=== PATIENT | male | born 1960 | race Caucasian/White ===

== ENCOUNTER 2021-05-06 11:15 | Inpatient (IN) | payer OTHER, MEDICAID ==
[~2021-05-06] VITALS: Ht 180.3 cm; Wt 81.6 kg
[2021-05-06] VITALS (13 sets, daily range): BP systolic 149–203; BP diastolic 60–94
[2021-05-06] MEDS ORDERED: ATROPINE SULF 0.5 MG/5ML SYR ONE (11:33)
[2021-05-06] MEDS ORDERED: ATROPINE SULF 1 MG/10ml SYR IV ONE ×2 (11:45→13:15)
[2021-05-06] MEDS ORDERED: GLUCAGON HYDROCHLORIDE (RDNA) 1 MG VIAL IV ONE ×3 (11:45→18:15)
[2021-05-06 12:04] LABS: Albumin 4.2 g/dL (3.4-5.0); Amylase 80 U/L (25-115); Anion Gap 9 (5-15); Blood Urea Nitrogen 10 mg/dL (7-18); Calcium 9.3 mg/dL (8.5-10.1); Carbon Dioxide 22 mmol/L (21-32); Chloride 110 mmol/L (98-107); Glucose 178 mg/dL (74-106); Lipase 166 U/L (73-393); Potassium 3.6 mmol/L (3.5-5.1); Sodium 141 mmol/L (136-145)
[2021-05-06 12:11] LABS: Alanine Aminotransferase 74 U/L (16-61); Alkaline Phosphatase 112 U/L (45-117); Aspartate Aminotransferase 56 U/L (15-37); Bilirubin, Total 0.8 mg/dL (0.2-1.0); GFR African American 133 mL/min; GFR Non-African American 110 mL/min; Total Protein 8.4 g/dL (6.4-8.2)
[2021-05-06] MEDS ORDERED: hydrALAZINE HCL 20 MG/ML VL IV ONE ×2 (12:15→15:30)
[2021-05-06] MEDS ORDERED: METOCLOPRAMIDE HCL 5MG/ml INJ 2ml VIAL IV ONE ×2 (12:15→14:15)
[2021-05-06 12:27] LABS: Hematocrit 46.5 % (41.0-53.0); Hemoglobin 16.8 g/dL (13.5-17.5); Mean Corpuscular Hemoglobin 31.6 pg (28.0-32.0); Mean Corpuscular Hgb Conc. 36.1 g/dL (32.0-36.0); Mean Corpuscular Volume 87.6 fL (80.0-100.0); Red Blood Cells 5.32 10^6/uL (4.5-5.90); Red Cell Distribution Width 14.8 % (11.8-14.3); White Blood Cell 5.7 10^3/uL (4.4-10.8)
[2021-05-06 12:32] LABS: Band Neutrophils % (manual) 0; Basophils % (manual) 0 (0.0-2.0); Blast Cells 0; Eosinophils % (manual) 0 (0-7); Metamyelocytes % 0; Myelocytes % 0; Promyelocytes % 0; Reactive Lymphocytes 0
[2021-05-06 12:43] LABS: Lymphocytes % (manual) 61 (10.0-50.0); Monocytes % (manual) 3 (0-12)
[2021-05-06 13:57] LABS: Urine Bacteria NONE SEEN /hpf (None Seen); Urine Blood Negative /uL (Negative); Urine Hyaline Cast FEW /lpf (0 - 2); Urine Specific Gravity 1.012 (1.001-1.035); Urine WBC 1 /hpf (0 - 3)
[2021-05-06] MEDS ORDERED: MORPHINE SULF INJ 2 MG/ML SYRINGE 1ML IV PRN (15:30)
[2021-05-06] MEDS ORDERED: NITROGLYCERIN 0.4 MG SL TAB SL PRN (15:30)
[2021-05-06] MEDS ORDERED: ATOR-47 PO (20:07)
[2021-05-06] MEDS ORDERED: METF-929 PO (20:07)
[2021-05-06] MEDS ORDERED: BICT1TAB PO (20:07)
[2021-05-06] MEDS ORDERED: LISI40TA11 PO (20:07)
[2021-05-06] MEDS ORDERED: GLIP-110 PO (20:07)
[2021-05-06] MEDS ORDERED: ATEN100T PO (20:07)
[2021-05-06] MEDS ORDERED: ASPI-231 PO (20:07)
[2021-05-06] MEDS ORDERED: ATROPINE SULF 1 MG/10ml SYR IV PRN (20:45)
[2021-05-06] MEDS ORDERED: DEXTROSE (50%) 50ML SYRG IV PRN (21:00)
[2021-05-06] MEDS ORDERED: SODIUM CHLORIDE 0.9% 1,000 ML IV ONE ×2 (21:00)
[2021-05-06] MEDS ORDERED: ATROPINE SULFATE 1 MG/1 ML VIAL ONE (21:05)
[2021-05-06] MEDS: ACCU-CHEK COMFORT CURVE STRIP VI SCH (22:00)
[2021-05-06] MEDS ORDERED: ISOPROTERENOL HCL INJECTION 1 MG in D5W 5% 250 ML IV SCH (22:30)
[2021-05-06] MEDS: hydrALAZINE HCL 20 MG/ML VL IV PRN (22:59)
[2021-05-06] MEDS: ATORVASTATIN 20 MG TAB PO SCH (23:00)
[2021-05-06] MEDS: InsuLIN REG 1unit/0.01ml Soln (100units/ml) SC SCH (23:23)
[2021-05-07] VITALS (59 sets, daily range): BP systolic 121–210; BP diastolic 59–97
[2021-05-07] MEDS ORDERED: ALPRAZolam 0.5 MG TAB ONE (00:30)
[2021-05-07] MEDS ORDERED: NITROGLYCERIN 0.4 MG SL TAB SL PRN (00:45)
[2021-05-07] MEDS ORDERED: hydrALAZINE HCL 20 MG/ML VL IV PRN (00:45)
[2021-05-07] MEDS: ALPRAZolam 0.5 MG TAB PO PRN ×2 (00:54→21:30)
[2021-05-07] MEDS: ACCU-CHEK COMFORT CURVE STRIP VI SCH ×4 (05:00→21:59)
[2021-05-07] MEDS: InsuLIN REG 1unit/0.01ml Soln (100units/ml) SC SCH ×4 (05:00→22:00)
[2021-05-07] MEDS ORDERED: [UNRECOGNIZED DRUG - OTHER] IV SCH (10:00)
[2021-05-07] MEDS: ASPirin 81 mg TAB PO SCH (10:09)
[2021-05-07] MEDS: amLODIPine BESYLATE 5 MG TAB PO SCH (12:34)
[2021-05-07] MEDS: LISINOPRIL 20 MG TAB PO SCH ×2 (12:35→21:58)
[2021-05-07] MEDS: hydrALAZINE HCL 20 MG/ML VL IV PRN (17:37)
[2021-05-07] MEDS: ATORVASTATIN 20 MG TAB PO SCH (21:57)
[2021-05-08] VITALS (19 sets, daily range): BP systolic 136–186; BP diastolic 69–107
[2021-05-08] MEDS: ACCU-CHEK COMFORT CURVE STRIP VI SCH ×2 (06:22→12:44)
[2021-05-08] MEDS: InsuLIN REG 1unit/0.01ml Soln (100units/ml) SC SCH ×2 (06:22→14:38)
[2021-05-08] MEDS: ASPirin 81 mg TAB PO SCH (09:35)
[2021-05-08] MEDS: ALPRAZolam 0.5 MG TAB PO PRN (09:35)
[2021-05-08] MEDS: amLODIPine BESYLATE 5 MG TAB PO SCH (09:35)
[2021-05-08] MEDS: LISINOPRIL 20 MG TAB PO SCH (09:36)
[2021-05-08] MEDS: hydrALAZINE HCL 25 MG TAB PO SCH ×2 (10:29→14:39)
[2021-05-08] MEDS ORDERED: HYDR25TA87 PO (11:53)
[2021-05-08] MEDS ORDERED: AML5T PO (11:53)
== END 2021-05-08 16:00 | disposition home health service (06) | DRG 310 ==
LOC: ER 11:15 → EDBD 11:15 → TELE 15:20 → ICU WEST 20:11
PROVIDERS: ADMIT Internal Medicine; ATTEND Internal Medicine
DX: R00.1 Bradycardia, unspecified (principal); E11.9 Type 2 diabetes mellitus without complications; E27.8 Other specified disorders of adrenal gland; E78.5 Hyperlipidemia, unspecified; I10 Essential (primary) hypertension; K40.90 Unilateral inguinal hernia, without obstruction or gangrene, not specified as recurrent; K44.9 Diaphragmatic hernia without obstruction or gangrene; T44.7X5A Adverse effect of beta-adrenoreceptor antagonists, initial encounter; Z20.822 Contact with and (suspected) exposure to COVID-19; R55 Syncope and collapse; Z80.9 Family history of malignant neoplasm, unspecified
CPT/HCPCS: 36415; 70450; 71045; 74176; 80053; 81001; 82150; 82962; 83690; 84484; 85007; 85027; 85049; 87081; 87426; 93005; 93306; 96374; 96375; 96376; 99291; G0378; J0461; J7060

== ENCOUNTER 2021-05-23 08:31 | Inpatient (IN) | payer OTHER, MEDICAID ==
[~2021-05-23] VITALS: Ht 210.8 cm; Wt 82.5 kg
[~2021-05-23 08:31] MED LIST: AML5T PO; ASPI-231 PO; ATOR-47 PO; BICT1TAB PO; GLIP-110 PO; HYDR25TA87 PO; LISI40TA11 PO; METF-929 PO
[2021-05-23 09:23] LABS: Basophils # (auto) 0 10 ^3/uL (0-0.2); Basophils % (auto) 0.6 % (0.0-2.0); Eosinophils # (auto) 0.1 10 ^3/uL (0-0.8); Eosinophils % (auto) 1.2 % (0.0-7.0); Hematocrit 45.3 % (41.0-53.0); Hemoglobin 15.9 g/dL (13.5-17.5); Lymphocytes % (auto) 26.1 % (10.0-50.0); Mean Corpuscular Hemoglobin 30.9 pg (28.0-32.0); Mean Corpuscular Volume 88.3 fL (80.0-100.0); Monocytes # (auto) 0.3 10 ^3/uL (0-1.3); Neutrophils # (auto) 5.1 10 ^3/uL (1.6-8.6); Neutrophils % (auto) 68.1 % (37.0-80.0); Nucleated Red Blood Cells % 0.1 %; Red Blood Cells 5.13 10^6/uL (4.5-5.90); Red Cell Distribution Width 14.2 % (11.8-14.3); White Blood Cell 7.5 10^3/uL (4.4-10.8)
[2021-05-23 09:43] LABS: Albumin 3.8 g/dL (3.4-5.0); Blood Urea Nitrogen 10 mg/dL (7-18); Carbon Dioxide 24 mmol/L (21-32); INR 1.05 (0.9-1.15); Partial Thromboplastin Time 25.6 sec (23.0-31.2)
[2021-05-23 10:08] LABS: Potassium 3.8 mmol/L (3.5-5.1); Sodium 140 mmol/L (136-145)
[2021-05-23 10:09] LABS: Alanine Aminotransferase 96 U/L (16-61); Alkaline Phosphatase 96 U/L (45-117); Anion Gap 6 (5-15); Aspartate Aminotransferase 39 U/L (15-37); BUN/Creatinine Ratio 17.5; Bilirubin, Total 0.8 mg/dL (0.2-1.0); Chloride 110 mmol/L (98-107); GFR African American 188 mL/min; GFR Non-African American 155 mL/min; Glucose 209 mg/dL (74-106); Total Protein 8.2 g/dL (6.4-8.2)
[2021-05-23] MEDS ORDERED: ONDANSETRON HCL 4 MG/2 ML VIAL ONE (11:42)
[2021-05-23 14:20] LABS: Salicylate 2.2 mg/dL (2.8-20.0)
[2021-05-23 14:22] LABS: Acetaminophen < 2.0 ug/mL (10-30)
[2021-05-23] MEDS ORDERED: DEXTROSE (50%) 50ML SYRG IV PRN (15:30)
[2021-05-23] MEDS ORDERED: ONDANSETRON HCL 4 MG/2 ML VIAL IV PRN (15:30)
[2021-05-23] MEDS ORDERED: hydrALAZINE HCL 20 MG/ML VL IV PRN (15:30)
[2021-05-23] MEDS ORDERED: MORPHINE SULF INJ 2 MG/ML SYRINGE 1ML IV PRN (15:30)
[2021-05-23] MEDS ORDERED: NITROGLYCERIN 0.4 MG SL TAB SL PRN (15:30)
[2021-05-23] MEDS ORDERED: HYDROcodone-ACET 5/325MG TAB PO PRN (15:30)
[2021-05-23] MEDS ORDERED: ACETAMINOPHEN 325 MG TAB PO PRN (15:30)
[2021-05-23] MEDS: ACCU-CHEK COMFORT CURVE STRIP VI SCH ×2 (16:00→20:05)
[2021-05-23 16:38] LABS: Urine Bacteria NONE SEEN /hpf (None Seen); Urine Blood Negative /uL (Negative); Urine Mucus FEW (None Seen); Urine Specific Gravity 1.016 (1.001-1.035); Urine WBC 2 /hpf (0 - 3)
[2021-05-23] MEDS: InsuLIN REG 1unit/0.01ml Soln (100units/ml) SC SCH ×2 (16:45→20:00)
[2021-05-23 16:57] LABS: Alcohol, Urine < 3.0 mg/dL (0-10); Amphetamine Screen, Urine NEGATIVE (NEGATIVE); Barbiturate Scree,Urine NEGATIVE (NEGATIVE); Benzodiazephine Screen, Urine NEGATIVE (NEGATIVE); Cannabinoid Screen, Urine POSITIVE (NEGATIVE); Cocaine Screen, Urine NEGATIVE (NEGATIVE); Opiate Scree,Urine NEGATIVE (NEGATIVE); Phencyclidine Screen, Urine NEGATIVE (NEGATIVE)
[2021-05-23 17:11] LABS: Hepatitis B Surface Antigen Negative (Negative)
[2021-05-23 17:12] LABS: Hepatitis A Ab IgM Negative; Hepatitis B Core IgM Negative; Hepatitis C Antibody Negative (Negative)
[2021-05-23] MEDS: metFORMIN HYDROCHLORIDE 500 MG TAB PO SCH (18:10)
[2021-05-23] MEDS ORDERED: LORazepam 2MG/ML-1ML VIAL IV PRN (21:00)
[2021-05-24] MEDS: ACCU-CHEK COMFORT CURVE STRIP VI SCH ×6 (00:08→21:56)
[2021-05-24] MEDS: InsuLIN REG 1unit/0.01ml Soln (100units/ml) SC SCH ×6 (04:00→21:26)
[2021-05-24 06:47] LABS: Basophils # (auto) 0 10 ^3/uL (0-0.2); Basophils % (auto) 0.7 % (0.0-2.0); Eosinophils # (auto) 0.1 10 ^3/uL (0-0.8); Eosinophils % (auto) 1.2 % (0.0-7.0); Hematocrit 41.9 % (41.0-53.0); Lymphocytes # (auto) 2.7 10 ^3/uL (0.4-5.4); Lymphocytes % (auto) 42.7 % (10.0-50.0); Mean Corpuscular Hemoglobin 31.8 pg (28.0-32.0); Mean Corpuscular Hgb Conc. 35.8 g/dL (32.0-36.0); Mean Corpuscular Volume 88.7 fL (80.0-100.0); Monocytes # (auto) 0.4 10 ^3/uL (0-1.3); Monocytes % (auto) 5.8 % (0.0-12.0); Neutrophils # (auto) 3.2 10 ^3/uL (1.6-8.6); Neutrophils % (auto) 49.6 % (37.0-80.0); Nucleated Red Blood Cells % 0.1 %; Red Blood Cells 4.72 10^6/uL (4.5-5.90); White Blood Cell 6.4 10^3/uL (4.4-10.8)
[2021-05-24 07:10] LABS: Albumin 3.6 g/dL (3.4-5.0); Calcium 8.7 mg/dL (8.5-10.1); Potassium 4.8 mmol/L (3.5-5.1)
[2021-05-24 07:15] LABS: BUN/Creatinine Ratio 23.3; Bilirubin, Total 0.7 mg/dL (0.2-1.0); Total Protein 8.1 g/dL (6.4-8.2)
[2021-05-24] MEDS: metFORMIN HYDROCHLORIDE 500 MG TAB PO SCH (08:04)
[2021-05-24] MEDS: amLODIPine BESYLATE 5 MG TAB PO SCH (08:06)
[2021-05-24 08:15] VITALS: BP 171/82
[2021-05-24] MEDS: hydrALAZINE HCL 25 MG TAB PO SCH ×2 (14:00→21:57)
[2021-05-24] MEDS: ATORVASTATIN 20 MG TAB PO SCH (21:57)
[2021-05-24 22:00] VITALS: BP 133/81
[2021-05-25] MEDS: ACCU-CHEK COMFORT CURVE STRIP VI SCH ×6 (00:01→21:12)
[2021-05-25 05:00] VITALS: BP 134/94
[2021-05-25 06:04] LABS: Potassium 3.6 mmol/L (3.5-5.1)
[2021-05-25] MEDS: hydrALAZINE HCL 25 MG TAB PO SCH ×3 (06:06→21:32)
[2021-05-25 06:08] LABS: BUN/Creatinine Ratio 32.8
[2021-05-25] MEDS: InsuLIN REG 1unit/0.01ml Soln (100units/ml) SC SCH ×6 (06:18→21:28)
[2021-05-25 06:27] LABS: Basophils # (auto) 0.1 10 ^3/uL (0-0.2); Basophils % (auto) 1.1 % (0.0-2.0); Eosinophils # (auto) 0.1 10 ^3/uL (0-0.8); Eosinophils % (auto) 0.9 % (0.0-7.0); Hematocrit 43.9 % (41.0-53.0); Hemoglobin 15.7 g/dL (13.5-17.5); Lymphocytes # (auto) 3.3 10 ^3/uL (0.4-5.4); Lymphocytes % (auto) 48.3 % (10.0-50.0); Mean Corpuscular Hemoglobin 31.4 pg (28.0-32.0); Mean Corpuscular Hgb Conc. 35.8 g/dL (32.0-36.0); Mean Corpuscular Volume 87.6 fL (80.0-100.0); Monocytes # (auto) 0.4 10 ^3/uL (0-1.3); Monocytes % (auto) 6.2 % (0.0-12.0); Neutrophils % (auto) 43.5 % (37.0-80.0); Nucleated Red Blood Cells % 0.1 %; Red Blood Cells 5.02 10^6/uL (4.5-5.90); Red Cell Distribution Width 14.1 % (11.8-14.3); White Blood Cell 6.8 10^3/uL (4.4-10.8)
[2021-05-25] MEDS ORDERED: LIDOCAINE 2%HCL (LOCAL ANESTH.) INJ 20ML MDV ONE (07:45)
[2021-05-25] MEDS ORDERED: IODIXANOL 320MG/ML 100ML BTL IV ONE ×3 (07:45→09:46)
[2021-05-25] MEDS ORDERED: fentaNYL CITRATE 100 MCG/2 ML VL ONE (08:07)
[2021-05-25] MEDS ORDERED: ANGIOMAX 250 MG VIAL IV ONE ×2 (08:07→09:35)
[2021-05-25] MEDS ORDERED: VERAPAMIL 2.5MG/ML INJ 2ML VIAL IV ONE (08:07)
[2021-05-25] MEDS ORDERED: HEPARIN SODIUM (PORCINE) 5000 UNITS/ML 1ML VIAL ONE (08:07)
[2021-05-25] MEDS ORDERED: MIDAZOLAM HCL 2MG/2ML 2ml VIAL (1mg/ml) ONE ×2 (08:08→09:38)
[2021-05-25] MEDS ORDERED: SODIUM CHL 0.9% 50 ML ONE ×2 (08:08→09:35)
[2021-05-25] MEDS ORDERED: TICAGRELOR 90 MG TAB ONE (09:11)
[2021-05-25] MEDS ORDERED: ASPirin 325 MG TAB ONE (09:11)
[2021-05-25] MEDS ORDERED: hydrALAZINE HCL 20 MG/ML VL ONE (09:35)
[2021-05-25] MEDS ORDERED: EPTIFIBATIDE INJ (2MG/ML) 10ML VIAL IV ONE (09:45)
[2021-05-25] MEDS ORDERED: BIKTARVY PO SCH (10:00)
[2021-05-25 11:03] LABS: Basophils # (auto) 0.1 10 ^3/uL (0-0.2); Basophils % (auto) 0.7 % (0.0-2.0); Eosinophils # (auto) 0.1 10 ^3/uL (0-0.8); Eosinophils % (auto) 1.8 % (0.0-7.0); Hematocrit 35.3 % (41.0-53.0); Hemoglobin 12.1 g/dL (13.5-17.5); Lymphocytes # (auto) 1.9 10 ^3/uL (0.4-5.4); Lymphocytes % (auto) 26.3 % (10.0-50.0); Mean Corpuscular Hgb Conc. 34.2 g/dL (32.0-36.0); Mean Corpuscular Volume 96.3 fL (80.0-100.0); Monocytes # (auto) 0.5 10 ^3/uL (0-1.3); Monocytes % (auto) 7.2 % (0.0-12.0); Neutrophils # (auto) 4.7 10 ^3/uL (1.6-8.6); Nucleated Red Blood Cells % 0.2 %; Red Blood Cells 3.66 10^6/uL (4.5-5.90); Red Cell Distribution Width 14.8 % (11.8-14.3); White Blood Cell 7.3 10^3/uL (4.4-10.8)
[2021-05-25 16:02] LABS: Basophils # (auto) 0 10 ^3/uL (0-0.2); Eosinophils # (auto) 0 10 ^3/uL (0-0.8); Lymphocytes # (auto) 2.7 10 ^3/uL (0.4-5.4); Mean Corpuscular Hgb Conc. 36.3 g/dL (32.0-36.0); Mean Corpuscular Volume 86.3 fL (80.0-100.0); Monocytes # (auto) 0.5 10 ^3/uL (0-1.3); Neutrophils # (auto) 3.8 10 ^3/uL (1.6-8.6); Nucleated Red Blood Cells % 0.1 %
[2021-05-25 16:06] LABS: Basophils % (auto) 0.5 % (0.0-2.0); Eosinophils % (auto) 0.3 % (0.0-7.0); Hematocrit 44.5 % (41.0-53.0); Hemoglobin 16.2 g/dL (13.5-17.5); Lymphocytes % (auto) 38.8 % (10.0-50.0); Mean Corpuscular Hemoglobin 31.3 pg (28.0-32.0); Monocytes % (auto) 6.8 % (0.0-12.0); Neutrophils % (auto) 53.6 % (37.0-80.0); Red Blood Cells 5.16 10^6/uL (4.5-5.90); Red Cell Distribution Width 14.2 % (11.8-14.3)
[2021-05-25 16:31] LABS: Albumin 4.1 g/dL (3.4-5.0); BUN/Creatinine Ratio 32.7; Calcium 8.9 mg/dL (8.5-10.1); Potassium 3.4 mmol/L (3.5-5.1)
[2021-05-25 16:34] LABS: Total Protein 8.1 g/dL (6.4-8.2)
[2021-05-25 17:00] VITALS: BP 142/82
[2021-05-25] MEDS: amLODIPine BESYLATE 5 MG TAB PO SCH (18:08)
[2021-05-25] MEDS: TICAGRELOR 90 MG TAB PO SCH (21:33)
[2021-05-25] MEDS: ATORVASTATIN 20 MG TAB PO SCH (21:33)
[2021-05-25 22:00] VITALS: BP 151/86
[2021-05-26] MEDS: ACCU-CHEK COMFORT CURVE STRIP VI SCH ×6 (00:08→21:55)
[2021-05-26] MEDS: InsuLIN REG 1unit/0.01ml Soln (100units/ml) SC SCH ×6 (03:59→20:00)
[2021-05-26 05:00] VITALS: BP 141/78
[2021-05-26] MEDS: hydrALAZINE HCL 25 MG TAB PO SCH ×3 (05:33→21:56)
[2021-05-26 06:19] LABS: Albumin 3.7 g/dL (3.4-5.0); Calcium 8.7 mg/dL (8.5-10.1); Potassium 3.4 mmol/L (3.5-5.1)
[2021-05-26 06:25] LABS: BUN/Creatinine Ratio 34.5; Bilirubin, Total 1.3 mg/dL (0.2-1.0); Total Protein 8.1 g/dL (6.4-8.2)
[2021-05-26 06:52] LABS: Basophils # (auto) 0 10 ^3/uL (0-0.2); Basophils % (auto) 0.4 % (0.0-2.0); Eosinophils # (auto) 0 10 ^3/uL (0-0.8); Eosinophils % (auto) 0.5 % (0.0-7.0); Hemoglobin 16.3 g/dL (13.5-17.5); Lymphocytes % (auto) 26.1 % (10.0-50.0); Mean Corpuscular Hemoglobin 31.7 pg (28.0-32.0); Mean Corpuscular Hgb Conc. 36.3 g/dL (32.0-36.0); Mean Corpuscular Volume 87.3 fL (80.0-100.0); Monocytes # (auto) 0.5 10 ^3/uL (0-1.3); Monocytes % (auto) 6.6 % (0.0-12.0); Neutrophils # (auto) 5.2 10 ^3/uL (1.6-8.6); Neutrophils % (auto) 66.4 % (37.0-80.0); Nucleated Red Blood Cells % 0.2 %; Red Blood Cells 5.15 10^6/uL (4.5-5.90); White Blood Cell 7.8 10^3/uL (4.4-10.8)
[2021-05-26] MEDS: ASPirin-EC 81 mg tab PO SCH (08:42)
[2021-05-26] MEDS: TICAGRELOR 90 MG TAB PO SCH ×2 (08:42→22:01)
[2021-05-26] MEDS: amLODIPine BESYLATE 5 MG TAB PO SCH (08:44)
[2021-05-26 09:00] VITALS: BP 147/87
[2021-05-26 12:41] VITALS: BP 147/90
[2021-05-26] MEDS: POTASSIUM CHL 20MEQ/100ML 100 ML IV ONE ×2 (14:47→15:00)
[2021-05-26 17:00] VITALS: BP 143/87
[2021-05-26 22:00] VITALS: BP 148/82
[2021-05-26] MEDS: ATORVASTATIN 20 MG TAB PO SCH (22:01)
[2021-05-27] MEDS: ACCU-CHEK COMFORT CURVE STRIP VI SCH ×5 (00:30→16:00)
[2021-05-27] MEDS: InsuLIN REG 1unit/0.01ml Soln (100units/ml) SC SCH ×5 (04:00→16:00)
[2021-05-27 05:00] VITALS: BP 140/83
[2021-05-27 05:32] LABS: Albumin 3.9 g/dL (3.4-5.0); Calcium 8.8 mg/dL (8.5-10.1); Potassium 3.6 mmol/L (3.5-5.1)
[2021-05-27 05:35] LABS: BUN/Creatinine Ratio 37.5
[2021-05-27 05:38] LABS: Bilirubin, Total 1.2 mg/dL (0.2-1.0); Total Protein 7.6 g/dL (6.4-8.2)
[2021-05-27 06:07] LABS: Eosinophils # (auto) 0.1 10 ^3/uL (0-0.8); Lymphocytes # (auto) 2.3 10 ^3/uL (0.4-5.4); Monocytes # (auto) 0.5 10 ^3/uL (0-1.3); Neutrophils # (auto) 3.4 10 ^3/uL (1.6-8.6); Red Blood Cells 4.79 10^6/uL (4.5-5.90)
[2021-05-27] MEDS: hydrALAZINE HCL 25 MG TAB PO SCH ×2 (06:19→14:39)
[2021-05-27 06:29] LABS: Basophils # (auto) 0 10 ^3/uL (0-0.2); Basophils % (auto) 0.6 % (0.0-2.0); Eosinophils % (auto) 1.4 % (0.0-7.0); Hematocrit 41.6 % (41.0-53.0); Hemoglobin 15.7 g/dL (13.5-17.5); Lymphocytes % (auto) 36.2 % (10.0-50.0); Mean Corpuscular Hemoglobin 32.8 pg (28.0-32.0); Mean Corpuscular Volume 86.8 fL (80.0-100.0); Monocytes % (auto) 7.6 % (0.0-12.0); Neutrophils % (auto) 54.2 % (37.0-80.0); Nucleated Red Blood Cells % 0.2 %; White Blood Cell 6.2 10^3/uL (4.4-10.8)
[2021-05-27 07:15] LABS: Mean Corpuscular Hgb Conc. 37.8 g/dL (32.0-36.0)
[2021-05-27] MEDS ORDERED: VERAPAMIL 2.5MG/ML INJ 2ML VIAL IV ONE (07:35)
[2021-05-27] MEDS ORDERED: HEPARIN SODIUM (PORCINE) 5000 UNITS/ML 1ML VIAL ONE (07:35)
[2021-05-27] MEDS ORDERED: ANGIOMAX 250 MG VIAL IV ONE (07:35)
[2021-05-27] MEDS ORDERED: MIDAZOLAM HCL 2MG/2ML 2ml VIAL (1mg/ml) ONE (07:36)
[2021-05-27] MEDS ORDERED: SODIUM CHL 0.9% 50 ML ONE (07:36)
[2021-05-27] MEDS ORDERED: fentaNYL CITRATE 100 MCG/2 ML VL ONE (07:36)
[2021-05-27] MEDS ORDERED: LIDOCAINE 2%HCL (LOCAL ANESTH.) INJ 20ML MDV ONE (07:37)
[2021-05-27] MEDS ORDERED: TICAGRELOR 90 MG TAB ONE (08:17)
[2021-05-27] MEDS: TICAGRELOR 90 MG TAB PO SCH (08:40)
[2021-05-27] MEDS ORDERED: LISI20TA28 PO (09:27)
[2021-05-27] MEDS ORDERED: AML5T PO (09:27)
[2021-05-27] MEDS ORDERED: ASPI-231 PO (09:27)
[2021-05-27] MEDS ORDERED: TICA90TA PO (09:27)
[2021-05-27 10:15] VITALS: BP 166/98
[2021-05-27] MEDS: amLODIPine BESYLATE 5 MG TAB PO SCH (10:21)
[2021-05-27] MEDS: ASPirin-EC 81 mg tab PO SCH (10:21)
[2021-05-27 13:00] VITALS: BP 137/101
[2021-05-27 15:48] VITALS: BP 148/76
== END 2021-05-27 16:35 | disposition home health service (06) | DRG 246 ==
LOC: EDBD 08:31 → ER 08:31 → TELE 15:30 → TELE-WESTW 05-24 16:22
PROVIDERS: ADMIT Internal Medicine; ATTEND Internal Medicine
PROC: 027136Z Dilation of Coronary Artery, Two Arteries with Three Drug-eluting Intraluminal Devices, Percutaneous Approach (ICD-10-PCS; principal; 2021-05-25)
PROC: 3E073PZ Introduction of Platelet Inhibitor into Coronary Artery, Percutaneous Approach (ICD-10-PCS; 2021-05-25)
PROC: 4A023N7 Measurement of Cardiac Sampling and Pressure, Left Heart, Percutaneous Approach (ICD-10-PCS; 2021-05-25)
PROC: B211YZZ Fluoroscopy of Multiple Coronary Arteries using Other Contrast (ICD-10-PCS; 2021-05-25)
PROC: B215YZZ Fluoroscopy of Left Heart using Other Contrast (ICD-10-PCS; 2021-05-25)
PROC: 027034Z Dilation of Coronary Artery, One Artery with Drug-eluting Intraluminal Device, Percutaneous Approach (ICD-10-PCS; 2021-05-27)
PROC: 3E073GC Introduction of Other Therapeutic Substance into Coronary Artery, Percutaneous Approach (ICD-10-PCS; 2021-05-27)
PROC: B210YZZ Fluoroscopy of Single Coronary Artery using Other Contrast (ICD-10-PCS; 2021-05-27)
DX: T82.855A Stenosis of coronary artery stent, initial encounter (principal); I25.10 Atherosclerotic heart disease of native coronary artery without angina pectoris; R00.1 Bradycardia, unspecified; E11.9 Type 2 diabetes mellitus without complications; E78.5 Hyperlipidemia, unspecified; F12.90 Cannabis use, unspecified, uncomplicated; H57.02 Anisocoria; I10 Essential (primary) hypertension; N40.0 Benign prostatic hyperplasia without lower urinary tract symptoms; Y83.1 Surgical operation with implant of artificial internal device as the cause of abnormal reaction of the patient, or of later complication, without mention of misadventure at the time of the procedure; Z20.822 Contact with and (suspected) exposure to COVID-19; Y92.89 Other specified places as the place of occurrence of the external cause; I25.2 Old myocardial infarction; Z79.82 Long term (current) use of aspirin; Z79.899 Other long term (current) drug therapy; Z80.0 Family history of malignant neoplasm of digestive organs; Z80.42 Family history of malignant neoplasm of prostate; Z82.0 Family history of epilepsy and other diseases of the nervous system; Z83.3 Family history of diabetes mellitus; Z86.73 Personal history of transient ischemic attack (TIA), and cerebral infarction without residual deficits
CPT/HCPCS: 36415; 70450; 70547; 70551; 71045; 71250; 76705; 80048; 80053; 80061; 80074; 80307; 80320; 80329; 81001; 82565; 82962; 84443; 84484; 84520; 85025; 85610; 85730; 87081; 87426; 92928; 92929; 93005; 93017; 93458; 93886; 95819; 97163; 99152; 99153; C1874; C1887; G0378; J1815; J2250; J2405; J3480; Q9967

== ENCOUNTER 2024-03-13 15:52 | Inpatient (IN) | payer OTHER, MEDICAID ==
[~2024-03-13] VITALS: Ht 180.3 cm; Wt 82.5 kg
[~2024-03-13 15:52] MED LIST changes: -ASPI-231 PO; +ASPI1TAB20 PO; -HYDR25TA87 PO; +LISI20TA56 PO; -LISI40TA11 PO; +TICA90TA PO
[2024-03-13 22:40] VITALS: BP 160/67; PULSE 67; RESP 27; TEMP 99; O2SAT 95
[2024-03-13] MEDS ORDERED: ONDANSETRON HCL 4 MG/2 ML VIAL IV PRN (22:45)
[2024-03-13 23:15] VITALS: BP 120/58; PULSE 77; RESP 16; O2SAT 94
[2024-03-13 23:30] VITALS: BP 132/60; PULSE 81; RESP 22; O2SAT 94
[2024-03-13 23:45] VITALS: BP 144/75; PULSE 63; RESP 25; O2SAT 96
[2024-03-14] VITALS (98 sets, daily range): BP systolic 115–176; BP diastolic 49–113; PULSE 57–92; RESP 11–33; TEMP 98.4–99; O2SAT 91–97
[2024-03-14] MEDS: SODIUM CHLORIDE 0.9% 1,000 ML IV SCH (00:52)
[2024-03-14] MEDS: ISOPROTERENOL HCL IV SCH (00:53)
[2024-03-14] MEDS: D5W 5% IV SCH (00:53)
[2024-03-14 03:40] LABS: Basophils # (auto) 0 10 ^3/uL (0-0.2); Basophils % (auto) 0.3 % (0.0-2.0); Eosinophils # (auto) 0 10 ^3/uL (0-0.8); Eosinophils % (auto) 0.4 % (0.0-7.0); Hematocrit 38.3 % (41.0-53.0); Hemoglobin 13.4 g/dL (13.5-17.5); Lymphocytes # (auto) 1.5 10 ^3/uL (0.4-5.4); Lymphocytes % (auto) 21.4 % (10.0-50.0); Mean Corpuscular Hemoglobin 31.7 pg (28.0-32.0); Mean Corpuscular Hgb Conc. 34.9 g/dL (32.0-36.0); Mean Corpuscular Volume 90.7 fL (80.0-100.0); Monocytes # (auto) 0.5 10 ^3/uL (0-1.3); Monocytes % (auto) 6.9 % (0.0-12.0); Nucleated Red Blood Cells % 0.1 %; Red Blood Cells 4.22 10^6/uL (4.5-5.90); Red Cell Distribution Width 13.3 % (11.8-14.3); White Blood Cell 7.1 10^3/uL (4.4-10.8)
[2024-03-14 03:48] LABS: INR 1.07 (0.9-1.15); Prothrombin Time 11.3 sec (9.3-11.8)
[2024-03-14 03:58] LABS: Alanine Aminotransferase 62 U/L (7-40); Albumin 4.1 g/dL (3.2-4.8); Alkaline Phosphatase 75 U/L (46-116); Anion Gap 9 (5-15); Aspartate Aminotransferase 31 U/L (13-40); BUN/Creatinine Ratio 14.7 (10.0-20.0); Bilirubin, Total 0.4 mg/dL (0.2-1.0); Blood Urea Nitrogen 11 mg/dL (9-23); Calcium 9.1 mg/dL (8.7-10.4); Carbon Dioxide 24 mmol/L (20-30); Chloride 108 mmol/L (98-107); Glucose 118 mg/dL (74-106); Potassium 3.3 mmol/L (3.5-5.1); Sodium 141 mmol/L (136-145); Total Protein 6.9 g/dL (5.7-8.2)
[2024-03-14] MEDS: POTASSIUM CHL 20MEQ/100ML 100 ML IV SCH (06:22)
[2024-03-14] MEDS: PANTOPRAZOLE 40 MG/10 ML VIAL INJ IV SCH (07:48)
[2024-03-14 08:39] LABS: Urine Bacteria None Seen /hpf (None Seen)
[2024-03-14] MEDS: ACETAMINOPHEN 325 MG TAB PO PRN (08:39)
[2024-03-14 09:02] LABS: Urine Blood Negative /uL (Negative); Urine Clarity Clear (Clear); Urine Color Yellow (Yellow); Urine Protein, UAD Negative (Negative); Urine Urobilinogen Normal (Negative); Urine WBC 5 /hpf (0 - 3)
[2024-03-14] MEDS: BARIUM SULFATE 98% 340 GM PWDR ONE (09:45)
[2024-03-14] MEDS: EZ PAQUE SUSP 12OZ BTL ONE (09:45)
[2024-03-14] MEDS: EZ-GAS II GRANULES (RADIOLOGY USE) PO ONE (09:45)
[2024-03-14] MEDS: ENOXAPARIN SOD 40 MG/0.4 ML SYRINGE SC SCH (10:00)
[2024-03-14] MEDS: ATORVASTATIN 20 MG TAB PO SCH (22:51)
[2024-03-14] MEDS: LISINOPRIL 20 MG TAB PO SCH (22:52)
[2024-03-15] VITALS (59 sets, daily range): BP systolic 129–172; BP diastolic 51–100; PULSE 58–87; RESP 11–29; TEMP 98.2–99.1; O2SAT 91–98
[2024-03-15 04:17] LABS: Basophils # (auto) 0 10 ^3/uL (0-0.2); Basophils % (auto) 0.6 % (0.0-2.0); Eosinophils # (auto) 0 10 ^3/uL (0-0.8); Eosinophils % (auto) 0.8 % (0.0-7.0); Hematocrit 39.8 % (41.0-53.0); Hemoglobin 13.4 g/dL (13.5-17.5); Lymphocytes # (auto) 1.5 10 ^3/uL (0.4-5.4); Lymphocytes % (auto) 31.1 % (10.0-50.0); Mean Corpuscular Hemoglobin 31.1 pg (28.0-32.0); Mean Corpuscular Hgb Conc. 33.6 g/dL (32.0-36.0); Mean Corpuscular Volume 92.6 fL (80.0-100.0); Monocytes # (auto) 0.4 10 ^3/uL (0-1.3); Neutrophils # (auto) 2.8 10 ^3/uL (1.6-8.6); Neutrophils % (auto) 59.5 % (37.0-80.0); Red Cell Distribution Width 13.5 % (11.8-14.3); White Blood Cell 4.7 10^3/uL (4.4-10.8)
[2024-03-15 04:41] LABS: Alanine Aminotransferase 55 U/L (7-40); Albumin 4.2 g/dL (3.2-4.8); Alkaline Phosphatase 77 U/L (46-116); Anion Gap 7 (5-15); Aspartate Aminotransferase 33 U/L (13-40); Calcium 9.4 mg/dL (8.7-10.4); Carbon Dioxide 24 mmol/L (20-30); Chloride 110 mmol/L (98-107); Glucose 132 mg/dL (74-106); Potassium 3.4 mmol/L (3.5-5.1); Sodium 141 mmol/L (136-145)
[2024-03-15 04:42] LABS: Bilirubin, Total 0.6 mg/dL (0.2-1.0)
[2024-03-15 04:56] LABS: BUN/Creatinine Ratio 7.1 (10.0-20.0); Blood Urea Nitrogen 5 mg/dL (9-23)
[2024-03-15] MEDS: BIKTARVY PO SCH (07:59)
[2024-03-15] MEDS: amLODIPine BESYLATE 5 MG TAB PO SCH (08:00)
[2024-03-15] MEDS: LIDOCAINE 2%HCL (LOCAL ANESTH.) INJ 20ML MDV ONE (09:47)
[2024-03-15] MEDS: fentaNYL CITRATE 100 MCG/2 ML VL ONE (10:12)
[2024-03-15] MEDS: VANCOMYCIN HCL 1000 MG VL ONE (10:12)
[2024-03-15] MEDS: MIDAZOLAM HCL 2MG/2ML 2ml VIAL (1mg/ml) ONE (10:13)
[2024-03-15] MEDS: VANCOMYCIN 1GM/200ML 200 ML IV ONE (10:14)
[2024-03-15] MEDS: POTASSIUM CHL 20 Meq TABLET PO ONE (14:53)
[2024-03-15] MEDS: HYDROcodone-ACET 7.5/325MG TAB PO PRN (21:47)
[2024-03-16] VITALS (27 sets, daily range): BP systolic 129–160; BP diastolic 75–106; PULSE 60–80; RESP 13–30; TEMP 97.8–98.9; O2SAT 89–97
[2024-03-16 13:16] LABS: Basophils # (auto) 0 10 ^3/uL (0-0.2); Basophils % (auto) 0.5 % (0.0-2.0); Eosinophils # (auto) 0.1 10 ^3/uL (0-0.8); Hematocrit 45.8 % (41.0-53.0); Hemoglobin 15.6 g/dL (13.5-17.5); Lymphocytes # (auto) 2.2 10 ^3/uL (0.4-5.4); Lymphocytes % (auto) 26.6 % (10.0-50.0); Mean Corpuscular Hemoglobin 30.9 pg (28.0-32.0); Mean Corpuscular Hgb Conc. 34.1 g/dL (32.0-36.0); Mean Corpuscular Volume 90.6 fL (80.0-100.0); Monocytes # (auto) 0.6 10 ^3/uL (0-1.3); Monocytes % (auto) 7.5 % (0.0-12.0); Neutrophils # (auto) 5.3 10 ^3/uL (1.6-8.6); Neutrophils % (auto) 64.4 % (37.0-80.0); Nucleated Red Blood Cells % 0.1 %; Red Blood Cells 5.05 10^6/uL (4.5-5.90); Red Cell Distribution Width 13.2 % (11.8-14.3); White Blood Cell 8.2 10^3/uL (4.4-10.8)
[2024-03-16 13:46] LABS: Chloride 107 mmol/L (98-107); Potassium 4.1 mmol/L (3.5-5.1); Sodium 137 mmol/L (136-145)
[2024-03-16 13:47] LABS: Anion Gap 3 (5-15); Calcium 10.3 mg/dL (8.7-10.4); Carbon Dioxide 27 mmol/L (20-30)
[2024-03-16 13:52] LABS: BUN/Creatinine Ratio 15.3 (10.0-20.0); Blood Urea Nitrogen 11 mg/dL (9-23); Glucose 95 mg/dL (74-106)
[2024-03-16] MEDS ORDERED: ACET-1304 PO (14:11)
[2024-03-16] MEDS ORDERED: DOXY-448 PO (14:11)
== END 2024-03-16 13:30 | disposition home or self-care (01) | DRG 243 ==
LOC: ICU WEST 22:12
PROVIDERS: ADMIT Hospitalist; ATTEND Hospitalist
PROC: 0JH606Z Insertion of Pacemaker, Dual Chamber into Chest Subcutaneous Tissue and Fascia, Open Approach (ICD-10-PCS; principal; 2024-03-15)
PROC: 02H63JZ Insertion of Pacemaker Lead into Right Atrium, Percutaneous Approach (ICD-10-PCS; 2024-03-15)
PROC: 02HK3JZ Insertion of Pacemaker Lead into Right Ventricle, Percutaneous Approach (ICD-10-PCS; 2024-03-15)
DX: I49.5 Sick sinus syndrome (principal); I45.89 Other specified conduction disorders; I10 Essential (primary) hypertension; E11.9 Type 2 diabetes mellitus without complications; I25.10 Atherosclerotic heart disease of native coronary artery without angina pectoris; I08.0 Rheumatic disorders of both mitral and aortic valves; I70.0 Atherosclerosis of aorta; Z95.5 Presence of coronary angioplasty implant and graft; Z79.84 Long term (current) use of oral hypoglycemic drugs; Z82.49 Family history of ischemic heart disease and other diseases of the circulatory system; Z82.0 Family history of epilepsy and other diseases of the nervous system; Z80.0 Family history of malignant neoplasm of digestive organs; Z79.4 Long term (current) use of insulin; Z79.899 Other long term (current) drug therapy
CPT/HCPCS: 33208; 36415; 71045; 80048; 80053; 81001; 82962; 83735; 84443; 85025; 85610; 85730; 86850; 86900; 86901; 87081; 93005; 93306; 99152; A4565; C9113; G0378; J2250; J3480; J7060